=== PATIENT | female | born 1990 | race Two or more races ===

== ENCOUNTER 2025-01-31 19:53 | Emergency (ER) | payer MEDICAID, SELFPAY ==
[2025-01-31 19:54] VITALS: BMI 28.1
[2025-01-31 20:01] VITALS: BP 133/87; PULSE 76; RESP 18; TEMP 37; O2SAT 98
--- NOTE | 2025-01-31 20:05 | EKG_ITS ---
[facility] Test Date: 2025-01-31 Pat Name: SYLVIA VELIZ Department: Room: - Gender: Female [employer]: : 1990 Requested By: Pilo Mina Order Number: [id number] Reading MD: Pilo Mina Measurements Intervals Frost Rate: 68 P: 45 IN: 147 QRS: 26 QRSD: 81 T: 28 QT: 367 QTc: 392 Interpretive Statements SINUS RHYTHM No previous ECG available for comparison /store/S0/[id number]/ecg/[id number].pdf
--- NOTE | 2025-01-31 20:19 | XR_ITS ---
Examination: AP chest single view Technique one AP upright portable chest single view Date and time: January 31, 2025, 2040 hrs. Indications: Chest pain today. Findings: Normal heart size. Lungs are clear. The osseous structures are intact. Impression: No active disease.
--- NOTE | 2025-01-31 20:20 | PD.EDRME ---
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 Chief Complaint: Chest Pain Vital signs: Vital Signs Temperature 98.6 F 01/31/25 20:01 Pulse Rate 76 01/31/25 20:01 Respiratory Rate 18 01/31/25 20:01 Blood Pressure 133/87 H 01/31/25 20:01 Pulse Oximetry (%) 98 01/31/25 20:01 Oxygen Delivery Method Room Air 01/31/25 20:01
[2025-01-31] MEDS: ONDANSETRON ODT 4 MG TABRAP PO (20:27)
[2025-01-31 20:33] LABS: Basophils # (Auto) 0.0 Thou/mm3 (0.0-0.2); Basophils % (Auto) 0 % (0-2.5); Eosinophils # (Auto) 0.1 Thou/mm3 (0.0-0.5); Eosinophils % (Auto) 1 % (0-10); Hematocrit 38.1 % (36.0-46.0); Hemoglobin 12.7 g/dL (12.0-16.0); Immature Granulocytes Auto 0.03 Thou/mm3 (0.00-0.00); Lymphocytes # (Auto) 2.2 Thou/mm3 (1.0-4.8); Lymphocytes % (Auto) 22 % (10-50); Mean Corpuscular HGB Conc 33.3 g/dl (31.0-37.0); Mean Corpuscular Hemoglobin 29.2 pg (25.0-35.0); Mean Corpuscular Volume 88 fL (80-100); Monocytes # (Auto) 0.5 Thou/mm3 (0.0-0.8); Monocytes % (Auto) 5 % (0-12); Neutrophils # (Auto) 7.1 Thou/mm3 (1.8-7.7); Neutrophils % (Auto) 71 % (37-80); Nucleated Red Blood Cell # 0.00 Thou/mm3 (0.00-0.00); Nucleated Red Blood Cell % 0 /100 WBC (0); Platelet Count 341 Thou/mm3 (140-440); RDW Standard Deviation 39.0 fL (36.4-46.3); Red Blood Count 4.35 Miln/mm3 (4.00-5.20); White Blood Count 10.0 Thou/mm3 (3.6-11.0)
[2025-01-31 20:40] VITALS: BP 136/94; PULSE 77; RESP 18; O2SAT 100
[2025-01-31 20:42] LABS: Collection Type, Urine Clean Catch
--- NOTE | 2025-01-31 20:43 | EDNOTE_ITS ---
ED Chest Pain RME/HPI General Chief Complaint: Chest Pain Stated Complaint: CHEST PAIN Time Seen by Provider: 01/31/25 20:39 Arrival date/time: 01/31/25 19:53 RME / HPI RME / HPI narrative: 34-year-old female patient with significant history of nonfunctional pituitary tumor, status post pituitary tumor resection, recurrence of pituitary tumor, and migraine headache, came in for evaluation regarding sudden onset of left-sided chest pain, while driving that lasted for few seconds. When the patient arrived home patient had diarrhea, nonbloody, and vomiting x 1. Denies any fever denies any other complaints no medications taken prior to arrival. Related Data Previous Rx's ?Medication ?Instructions ?Recorded egmqaqttvg-aobhvnrrvpnni-qkwutmcu 1 cap PO TID PRN jasmin n #20 caps 08/17/21 50 mg-300 mg-40 mg capsule (Fioricet) hydrocodone 5 mg-acetaminophen 325 1 tab PO BID PRN pa in #6 tabs 04/19/23 mg tablet ibuprofen 600 mg tablet 600 mg PO Q6H #30 tabs 04/19 Allergies Allergy/AdvReac Type Severity Reaction Status Date / Time No Known Allergies Allergy Verified 03/29/24 13:38 Review of Systems Review of Systems Narrative Review of Systems: Review of system reviewed and within normal limits except mentioned in HPI ED Exam Narrative Physical exam: VITAL SIGNS: Reviewed. GENERAL APPEARANCE: Alert and interactive, follows commands, no acute distress, HEAD AND FACE: Non-traumatic. ENT: PERRL, pink conjunctivitis, eyelid no trauma, Mucous membrane moist. NECK: Supple, nontender, no nuchal rigidity. CHEST: No tenderness, no crepitus, no paradoxical movement, no retractions. LUNGS: Clear, well ventilated, symmetric, no rales, no wheezing, no ronchi, no stridor, good breath sounds bilaterally. HEART: Regular rate, regular rhythm, no murmur, no gallops. ABDOMEN: Soft, positive bowel sounds, nondistended, no guarding, nontender, no rebound, no masses, RECTAL: Deferred. GENITAL: Deferred. NEUROLOGICAL: Gross motor function intact sensory function intact, Appropriate for age. MUSCULOSKELETAL: low back nontender, full range of motion. EXTREMITIES: Nontender, full range of motion. SKIN: Color pink, dry, no rash, no lacerations, no abrasions, no contusions. LYMPHATICS: Deferred. Course Quality Measures none Orders Category Date Time Status EKG (ED ONLY) *Do not use* NOW Care 01/31/25 20:05 Completed EKG (ED Only) Stat Exams 01/31/25 20:05 Draft XR chest 1V portable Stat Exams 01/31/25 20:19 Completed CBC Stat Lab 01/31/25 20:27 Completed Comprehensive Metabolic Panel Stat Lab 01/31/25 20:27 Completed Drug Screen,Urine Stat Lab 01/31/25 20:33 Completed HCG Qualitative,Urine Stat Lab 01/31/25 20:33 Completed Troponin I Stat Lab 01/31/25 20:27 Completed Urinalysis, C/S if Indicated Stat Lab 01/31/25 20:33 Completed Ondansetron Odt [Zofran Odt] Med 01/31/25 20:19 Discontinued 4 mg PO X1 ONE Vital Signs Vital signs: Vital Signs Temperature 98.6 F 01/31/25 20:01 Pulse Rate 76 01/31/25 20:01 Respiratory Rate 18 01/31/25 20:01 Blood Pressure 133/87 H 01/31/25 20:01 Pulse Oximetry (%) 98 01/31/25 20:01 Oxygen Delivery Method Room Air 01/31/25 20:01 Chest Pain MDM Narrative MDM Narrative:: 34-year-old female patient with significant history of nonfunctional pituitary tumor, status post pituitary tumor resection, recurrence of pituitary tumor, and migraine headache, came in for evaluation regarding sudden onset of left-sided chest pain, while driving that lasted for few seconds. When the patient arrived home patient had diarrhea, nonbloody, and vomiting x 1. Denies any fever denies any other complaints no medications taken prior to arrival. Patient's laboratory workup CBC came back unremarkable CMP unremarkable urinalysis no UTI chest x-ray came back normal EKG showed normal sinus rhythm, ventricular rate of 68 bpm, no ST segment elevation depression noted. Prior to discharge patient is not having any complaints patient did not have any bowel movement. Or vomiting in the ED. No headache no chest pain Patient data External records reviewed:: None Clinical information provided by:: patient Social determinants that could affect healthcare access:: none Patient has the following chronic illnesses:: None How is presenting disease/condition affected by chronic disease/condition?: no chronic disease Evaluation data The following diagnostics were reviewed and interpreted by me:: lab results, radiology exam(s) and EKG tracing(s) Lab and/or radiology exams considered but not ordered:: None Interpretation Summary: None Medications / Prescriptions Medications or Prescriptions considered but not ordered:: None Medication administrations:: Medication Administration History Discontinued Medications Ondansetron HCl (Ondansetron Odt 4 Mg Tabrap) 4 mg PO X1 ONE; Protocol Stop: 01/31/25 20:20 Last Admin: 01/31/25 20:27 Dose: 4 mg Documented By: Zofran Consultations Consultation(s) initiated? (list below): No Diagnosis Chest Pain Differential Diagnosis: chest pain and other (Gastroenteritis dehydration) Most likely diagnosis given after review of the tests above:: Gastroenteritis Admission Indicated Admission indicated?: not indicated Admission Request Was there a request for admission?: No Disposition Plan Disposition Plan: Discharge Discharge Attestation Discharge Attestation: The patient and all family members were given an opportunity to ask questions and understood the discharge instructions. Discharge instructions specifically effects, indications for sooner follow up or return to the emergency department, and the expected course of current diagnosis. Patient condition: Stable Discharge Plan Plan Patient Disposition: HOME (Self Care) Discharge Disposition comment: Stable Prescriptions/Referrals Prescriptions/Med Rec: No Action ajqfpscwhg-rixtgdxqsjlhr-libr [Fioricet] 50-300-40 mg capsule 1 cap PO TID PRN (Reason: pain) Qty: 20 0RF hydrocodone-acetaminophen 5-325 mg tablet 1 tab PO BID MDD 10 PRN (Reason: pain) Qty: 6 0RF ibuprofen 600 mg tablet 600 mg PO Q6H Qty: 30 0RF Referrals: Taylor Martinez FNP-C [Primary Care Provider] - In 1 week Problem List Clinical Impression: Gastroenteritis Patient/Caregiver Discharge Instructions Discharge Activity: activity as tolerated Education Materials: How the Colon Works Additional Instructions: Thank you for the opportunity for serving you today. You are stable for discharged . You are advised to: Follow-up with your PCP in 1 to 2 days Return to ED for worsening of symptoms Increase oral fluids Print Language: Maltese Stand Alone Forms: Adri Award Info., Patient Portal Info Letter KAYLEE/RUFINA Supervising Physician KAYLEE/RUFINA Supervising Physician: MD Don
[2025-01-31 20:45] LABS: Bilirubin,Urine Negative (Negative); Blood,Urine Trace (Negative); Clarity,Urine Clear (Clear/Hazy); Color,Urine Lt-Yellow (Lt Yel-Yel); Culture Indicated,Urine Not Indicated; Glucose, Urine Negative (Negative); Ketones,Urine Negative (Negative); Leukocyte Esterase,Urine Negative (Negative); Nitrite,Urine Negative (Negative); PH,Urine 7.5 (5.0-7.0); Protein,Urine Negative (Neg - Trace); RBC,Urine 5 /hpf (0-3); Specific Gravity,Urine 1.014 (1.001-1.035); Squamous Epithelial Cell,Urine 1 /hpf (0-5); Urobilinogen,Urine Negative mg/dL (0.0-1.0); WBC,Urine 2 /hpf (0-5)
[2025-01-31 20:50] LABS: Alanine Aminotransferase 19 U/L (10-49); Albumin, Serum 4.4 gm/dL (3.5-5.0); Albumin/Globulin Ratio 1.6 (1.2-2.2); Alkaline Phosphatase 87 U/L (46-116); Anion Gap 8 (7-16); Aspartate Amino Transferase 27 U/L (0-34); BUN/Creatinine Ratio 10 Ratio (12-20); Bilirubin,Total 0.6 mg/dL (0.3-1.2); Blood Urea Nitrogen 10 mg/dL (9-23); Calcium 9.2 mg/dL (8.3-10.6); Calcium (Corrected) 9.2 mg/dL (8.5-10.1); Carbon Dioxide 27.4 mMol/L (20.0-31.0); Chloride 105 mMol/L (98-107); Creatinine (Component) 1.0 mg/dL (0.6-1.3); Estimated Creatinine Clearance 77.6 mL/min (>60); Globulin 2.8 gm/dL (2.3-3.5); Glucose 87 mg/dL (74-106); Osmolality,Calculated 277 (275-295); Potassium 4.0 mMol/L (3.4-5.1); Sodium 140 mMol/L (136-145); Total Protein 7.2 gm/dL (5.7-8.2); Troponin I < 0.002 ng/mL (0.0-0.045); eGFR > 60 See Note
[2025-01-31 20:52] LABS: HCG Qualitative,Urine Negative
[2025-01-31 21:19] LABS: Amphetamine/Methamp Scrn,U Negative (Negative); Barbiturate Screen,Urine Negative (Negative); Benzodiazepines Screen,Urine Negative (Negative); Benzoylecgonine Screen, Ur Negative (Negative); Fentanyl Screen,Urine Negative (Negative); Opiate Screen,Urine Negative (Negative); THC Screen,Urine Negative (Negative)
== END 2025-01-31 22:36 | disposition home or self-care (01) ==
PROVIDERS: Emergency Provider Physician Assistant
DX: K52.9 Noninfective gastroenteritis and colitis, unspecified (principal); R07.9 Chest pain, unspecified
CPT/HCPCS: 36415; 71045; 80053; 80307; 81001; 81025; 84484; 85025; 93005; 99283; Q0162